=== PATIENT | male | born 1970 | race Caucasian/White ===

== ENCOUNTER 2016-10-24 18:11 | Emergency (ER) | payer BC ==
[~2016-10-24] VITALS: Ht 175.3 cm; Wt 89.0 kg
[~2016-10-24 18:11] MED LIST: ASPI81TA82 PO; LISI2.5T3 PO; MECL-62 PO; ROSU40 PO; ZOFR4TAB3 SL
[2016-10-24 18:17] VITALS: BP 158/81; PULSE 72; RESP 16; TEMP 97.5; O2SAT 98
[2016-10-24 18:29] VITALS: BP 158/81; PULSE 71; RESP 16; O2SAT 100
[2016-10-24] MEDS ORDERED: SODIUM CHLOR 0.9% 1000 ML INJ 1,000 ML IV ONE (18:30)
[2016-10-24] MEDS ORDERED: ONDANSETRON HCL 4 MG/2 ML VIAL IV ONE (18:30)
[2016-10-24] MEDS ORDERED: ASPI81TA11 PO (18:34)
[2016-10-24] MEDS ORDERED: ROSU20 PO (18:34)
[2016-10-24] MEDS ORDERED: MECL1TAB42 PO (18:34)
[2016-10-24] MEDS ORDERED: LISI2.5T3 PO (18:34)
[2016-10-24 19:02] LABS: AUTOMATED NEUTROPHIL # 10.6 TH/MM3 (1.8-7.7); BASOPHIL # 0.1 TH/MM3 (0-0.2); BASOPHIL % 0.5 % (0.0-2.0); EOSINOPHIL # 0.1 TH/MM3 (0-0.4); EOSINOPHIL % 0.8 % (0.0-4.0); HEMATOCRIT 43.7 % (39.0-51.0); HEMO FLAGS DIFF FINAL; LYMPH % 14.4 % (9.0-44.0); LYMPHOCYTE # 1.9 TH/MM3 (1.0-4.8); MEAN CELL VOLUME 90.6 FL (80.0-100.0); MEAN CORPUSCULAR HEMOGLOBIN 30.2 PG (27.0-34.0); MEAN CORPUSCULAR HGB CONC 33.4 % (32.0-36.0); MONO % 5.1 % (0.0-8.0); NEUT % 79.2 % (16.0-70.0); PLATELET COUNT 256 TH/MM3 (150-450); RED BLOOD COUNT 4.82 MIL/MM3 (4.50-5.90); RED CELL DISTRIBUTION WIDTH 13.2 % (11.6-17.2); WHITE BLOOD COUNT 13.4 TH/MM3 (4.0-11.0)
[2016-10-24] MEDS ORDERED: MECL-62 PO (19:14)
[2016-10-24] MEDS ORDERED: ZOFR4TAB3 SL (19:14)
--- NOTE | 2016-10-24 19:14 | PD ---
HPI Chief Complaint: Dizziness Time Seen by Provider: 18:15 Travel History International Travel<30 days: No Contact w/Intl Traveler<30days: No Traveled to known affect area: No History of Present Illness HPI Social 46-year-old man who presents to the emergency department complaining of dizziness that started about 2:00 or so. He states it feels like he is "smoked dope". He states he's had episodes of dizziness intermittently in the past. He states his dizziness feels similar to his previous episodes but this is been much more severe. Symptoms got progressively worse and he had persistent vomiting for several hours as well. Because of his worsening symptoms, he presented to the emergency Department. At this point he actually appears improved. He's having minimal dizziness now. Denies any headache, chest pain, shortness of breath. He does have a feeling of fullness in his left ear, and some ringing in his ear earlier today. History Past Medical History Narrative Medical Dizziness, possible Mnire's disease CAD, stents Hypertension Hyperlipidemia Influenza Vaccination: No Social History Alcohol Use: Yes (DAILY BEER DRINKER) Tobacco Use: No Allergies-Medications (Allergen,Severity, Reaction): Coded Allergies: No Known Allergies (Unverified , 10/24/16) Reported Meds & Prescriptions Reported Meds & Active Scripts Active Reported Crestor (Rosuvastatin Calcium) 20 Mg Tab 20 Mg PO HS Meclizine 25 (Meclizine HCl) 25 Mg Tab 25 Mg PO DAILY PRN Lisinopril 2.5 Mg Tab 2.5 Mg PO DAILY Aspirin EC (Aspirin) 81 Mg Tabdr 81 Mg PO DAILY Review of Systems Except as stated in HPI: all other systems reviewed are Neg Physical Exam Narrative GENERAL: Well-appearing 46-year-old man, no acute distress. SKIN: Focused skin assessment warm/dry. HEAD: Atraumatic. Normocephalic. EYES: Pupils equal and round. No scleral icterus. No injection or drainage. ENT: No nasal bleeding or discharge. Mucous membranes pink and moist. NECK: Trachea midline. No JVD. CARDIOVASCULAR: Regular rate and rhythm. No murmur appreciated. RESPIRATORY: No accessory muscle use. Clear to auscultation. Breath sounds equal bilaterally. GASTROINTESTINAL: Abdomen soft, non-tender, nondistended. Hepatic and splenic margins not palpable. MUSCULOSKELETAL: No obvious deformities. No clubbing. No cyanosis. No edema. NEUROLOGICAL: Awake and alert. No obvious cranial nerve deficits. Normal finger to nose. Normal heel to mcnally. Motor grossly within normal limits. Normal speech. PSYCHIATRIC: Appropriate mood and affect; insight and judgment normal. Data Data Last Documented VS Vital Signs Date Time Temp Pulse Resp B/P Pulse Ox O2 Delivery O2 Flow Rate FiO2 10/24/16 18:29 71 16 158/81 100 Room Air 10/24/16 18:17 97.5 Orders Complete Blood Count With Diff (10/24/16 18:28) Comprehensive Metabolic Panel (10/24/16 18:28) Electrocardiogram (10/24/16 ) Iv Access Insert/Monitor (10/24/16 18:28) Troponin I (10/24/16 18:28) Sodium Chlor 0.9% 1000 Ml Inj (Ns 1000 M (10/24/16 18:30) Ondansetron Inj (Zofran Inj) (10/24/16 18:30) Labs Laboratory Tests Test 10/24/16 16:35 White Blood Count 13.4 TH/MM3 Red Blood Count 4.82 MIL/MM3 Hemoglobin 14.6 GM/DL Hematocrit 43.7 % Mean Corpuscular Volume 90.6 FL Mean Corpuscular Hemoglobin 30.2 PG Mean Corpuscular Hemoglobin 33.4 % Concent Red Cell Distribution Width 13.2 % Platelet Count 256 TH/MM3 Mean Platelet Volume 8.2 FL Neutrophils (%) (Auto) 79.2 % Lymphocytes (%) (Auto) 14.4 % Monocytes (%) (Auto) 5.1 % Eosinophils (%) (Auto) 0.8 % Basophils (%) (Auto) 0.5 % Neutrophils # (Auto) 10.6 TH/MM3 Lymphocytes # (Auto) 1.9 TH/MM3 Monocytes # (Auto) 0.7 TH/MM3 Eosinophils # (Auto) 0.1 TH/MM3 Basophils # (Auto) 0.1 TH/MM3 CBC Comment DIFF FINAL Differential Comment MDM Medical Decision Making Medical Screen Exam Complete: Yes Emergency Medical Condition: Yes Differential Diagnosis Dizziness, vertigo, weakness, CVA, Mnire's, vestibular migraine, other Narrative Course Medical decision making 46-year-old man presents to the emergency department complaining of dizziness and lightheadedness. Neurologic exam is unremarkable. He says several previous episodes. Suspect Mnire's or acoustic neuritis. Recommend supportive treatment. We'll check screening labs. EKG is unremarkable. Diagnosis Primary Impression: Dizziness and giddiness Additional Instructions: Use meclizine as needed for dizziness or vertigo. Use Zofran if needed for nausea or vomiting. Operative primary doctor in the next 2-4 days. Return to the emergency department for any worsening dizziness, dehydration, changes in hearing or vision, numbness tingling or weakness, or any other new or worsening symptoms area and Med/Other Pt SpecificInfo: Prescription(s) given Scripts Ondansetron Odt (Zofran Odt)4 Mg Tab4 Mg SL Q8HR PRN (Nausea/Vomiting) #15 TAB May substitute non-ODT form. Prov:Sherwin Lo MD 10/24/16 Meclizine 25 Mg Tab25 Mg PO TID PRN (VERTIGO) #15 TAB Prov:Sherwin Lo MD 10/24/16 Disposition: 01 DISCHARGE HOME Condition: Stable Sherwin Lo MD Oct 24, 2016 19:14
[2016-10-24 19:21] LABS: ALT (GPT) 64 U/L (12-78)
[2016-10-24 19:25] LABS: ALKALINE PHOSPHATASE 81 U/L (45-117); TOTAL BILIRUBIN ADULT 0.3 MG/DL (0.2-1.0)
[2016-10-24 19:34] LABS: ANION GAP 9 MEQ/L (5-15); AST (GOT) 32 U/L (15-37); BICARBONATE 29.5 MEQ/L (21.0-32.0); BLOOD UREA NITROGEN 19 MG/DL (7-18); CHLORIDE 100 MEQ/L (98-107); GLOMERULAR FILTRATION RATE 67 ML/MIN (>89); POTASSIUM 4.1 MEQ/L (3.5-5.1); SODIUM (NA) 138 MEQ/L (136-145)
--- NOTE | 2016-10-24 20:51 | RADRPT ---
EXAM DATE/TIME: 10/24/2016 20:15 [facility] COMPARISON: No previous studies available for comparison. INDICATIONS : Syncope. MEDICAL HISTORY : Hypertension. Cardiovascular disease. SURGICAL HISTORY : Cardiac stents. ENCOUNTER: Initial ACUITY: 1 day PAIN SCORE: 0/10 LOCATION: Bilateral chest FINDINGS: A single view of the chest demonstrates the lungs to be symmetrically aerated without evidence of mas s, infiltrate or effusion. The cardiomediastinal contours are unremarkable. Osseous structures are intact. CONCLUSION: No acute disease. Fritz Nichosl MD on October 24, 2016 at 20:48 Board Certified Radiologist. This report was verified electronically.
[2016-10-24 21:25] LABS: BLOOD, URINE NEG (NEG); GLUCOSE,URINE NEG (NEG); KETONE, URINE NEG (NEG); MUCUS URINE FEW /lpf (OCC); NITRITE,URINE NEG (NEG); PH, URINE 6.5 (5.0-8.5); URINE COLOR YELLOW (YELLW/STRAW)
[2016-10-24 21:26] LABS: COMMENT (UR) CATH-CULT NOT IND; CULTURE IF INDICATED CATH CULTURE NOT IND
--- NOTE | 2016-10-24 21:32 | PD ---
Physical Exam Date Seen by Provider: Oct 24, 2016 Time Seen by Provider: 19:30 Narrative Patient initially seen and evaluated by Dr. Lo, please see previous notes for further information. Awaiting lab work, has history of vertigo and is presenting with similar symptoms according to patient and . He has been evaluated by ENT for vertigo. EKG did not show significant dysrhythmias. Patient's vital signs are stable in the ER. He has no focal neurological deficits. Laboratory Tests Test 10/24/16 10/24/16 16:35 20:56 White Blood Count 13.4 TH/MM3 (4.0-11.0) Neutrophils (%) (Auto) 79.2 % (16.0-70.0) Neutrophils # (Auto) 10.6 TH/MM3 (1.8-7.7) Blood Urea Nitrogen 19 MG/DL (7-18) Estimat Glomerular Filtration 67 ML/MIN (>89) Rate Troponin I LESS THAN 0.02 NG/ML (0.02-0.05) Urine Mucus FEW /lpf (OCC) Lab work shows leukocytosis of unknown etiology. He is afebrile and has no cough, cold symptoms, abdominal pain, urinary symptoms, or other symptoms. Abdomen is benign. His UA shows no signs of UTI. Chest x-rays negative. Lactate was unremarkable. At this point, I have talked to the patient regarding findings and he states that he is comfortable with released with follow-up to primary care physician. He is given symptomatic relief or nausea and vomiting and should continue meclizine for his vertigo as needed. Return for any worsening in symptoms as needed. The plan has been discussed with the patient and he states understanding. Data Data Last Documented VS Vital Signs Date Time Temp Pulse Resp B/P Pulse Ox O2 Delivery O2 Flow Rate FiO2 10/24/16 18:29 71 16 158/81 100 Room Air 10/24/16 18:17 97.5 Orders Complete Blood Count With Diff (10/24/16 18:28) Comprehensive Metabolic Panel (10/24/16 18:28) Electrocardiogram (10/24/16 ) Iv Access Insert/Monitor (10/24/16 18:28) Troponin I (10/24/16 18:28) Sodium Chlor 0.9% 1000 Ml Inj (Ns 1000 M (10/24/16 18:30) Ondansetron Inj (Zofran Inj) (10/24/16 18:30) Lactic Acid Sepsis Protocol (10/24/16 19:54) Urinalysis - C+S If Indicated (10/24/16 19:54) Blood Culture (10/24/16 19:54) Chest, Single Ap (10/24/16 19:54) Labs Laboratory Tests Test 10/24/16 10/24/16 10/24/16 16:35 20:20 20:56 White Blood Count 13.4 TH/MM3 Red Blood Count 4.82 MIL/MM3 Hemoglobin 14.6 GM/DL Hematocrit 43.7 % Mean Corpuscular Volume 90.6 FL Mean Corpuscular Hemoglobin 30.2 PG Mean Corpuscular Hemoglobin 33.4 % Concent Red Cell Distribution Width 13.2 % Platelet Count 256 TH/MM3 Mean Platelet Volume 8.2 FL Neutrophils (%) (Auto) 79.2 % Lymphocytes (%) (Auto) 14.4 % Monocytes (%) (Auto) 5.1 % Eosinophils (%) (Auto) 0.8 % Basophils (%) (Auto) 0.5 % Neutrophils # (Auto) 10.6 TH/MM3 Lymphocytes # (Auto) 1.9 TH/MM3 Monocytes # (Auto) 0.7 TH/MM3 Eosinophils # (Auto) 0.1 TH/MM3 Basophils # (Auto) 0.1 TH/MM3 CBC Comment DIFF FINAL Differential Comment Sodium Level 138 MEQ/L Potassium Level 4.1 MEQ/L Chloride Level 100 MEQ/L Carbon Dioxide Level 29.5 MEQ/L Anion Gap 9 MEQ/L Blood Urea Nitrogen 19 MG/DL Creatinine 1.16 MG/DL Estimat Glomerular Filtration 67 ML/MIN Rate Random Glucose 106 MG/DL Calcium Level 9.1 MG/DL Total Bilirubin 0.3 MG/DL Aspartate Amino Transf 32 U/L (AST/SGOT) Alanine Aminotransferase 64 U/L (ALT/SGPT) Alkaline Phosphatase 81 U/L Troponin I LESS THAN 0.02 NG/ML Total Protein 8.1 GM/DL Albumin 4.4 GM/DL Lactic Acid Level 1.5 mmol/L Urine Color YELLOW Urine Turbidity CLEAR Urine pH 6.5 Urine Specific [place] 1.016 Urine Protein NEG mg/dL Urine Glucose (UA) NEG mg/dL Urine Ketones NEG mg/dL Urine Occult Blood NEG Urine Nitrite NEG Urine Bilirubin NEG Urine Urobilinogen LESS THAN 2.0 MG/DL Urine Leukocyte Esterase NEG Urine RBC LESS THAN 1 /hpf Urine Mucus FEW /lpf Microscopic Urinalysis Comment CATH-CULT NOT IND MDM Medical Record Reviewed: Yes Supervised Visit with DARIO: No Diagnosis Primary Impression: Dizziness and giddiness Additional Instruction: Use meclizine as needed for dizziness or vertigo. Use Zofran if needed for nausea or vomiting. Operative primary doctor in the next 2-4 days. Return to the emergency department for any worsening dizziness, dehydration, changes in hearing or vision, numbness tingling or weakness, or any other new or worsening symptoms area and Scripts Ondansetron Odt (Zofran Odt)4 Mg Tab4 Mg SL Q8HR PRN (Nausea/Vomiting) #15 TAB May substitute non-ODT form. Prov:Sherwin Lo MD 10/24/16 Meclizine 25 Mg Tab25 Mg PO TID PRN (VERTIGO) #15 TAB Prov:Sherwin Lo MD 10/24/16 Disposition: 01 DISCHARGE HOME Condition: Stable Sumeet Mcintosh MD Oct 24, 2016 21:32
--- NOTE | 2016-10-25 06:49 | EKG ---
Date Performed: 10/24/2016 Time Performed: 18:22:01 PTAGE: 46 years EKG: Sinus rhythm NORMAL ECG PREVIOUS TRACING : 07/12/2015 17.28 No significant change from previous tracing noted. DOCTOR: Shane Cuadra Interpretating Date/Time 10/25/2016 06:47:31
== END 2016-10-24 22:10 | disposition home or self-care (01) ==
LOC: NEPC 18:11
DX: R42 Dizziness and giddiness (principal)
CPT/HCPCS: 71010; 80053; 81001; 83605; 84484; 85025; 87040; 93005; 96361; 96374; 99284; J2405; J7030